=== PATIENT | female | born 1995 | race Caucasian/White ===

== ENCOUNTER 2018-01-28 00:23 | Emergency (ER) | payer BC, SELFPAY ==
[2018-01-28 00:53] LABS: #Basophils 0.1 thou/uL (0.0-0.2); #Eosinphils 0.1 thou/uL (0.0-0.7); #Lymphocytes 2.7 thou/uL (1.20-3.40); #Monocytes 0.8 thou/uL (0.11-0.59); #Neutrophils 6.5 thou/uL (1.40-6.50); %Basophils 1.2 % (0.0-1.0); %Eosinophils 0.7 % (0.0-10.0); %Lymphocytes 26.5 % (21.0-51.0); %Monocytes 7.6 % (0.0-10.0); %Neutrophils 64.1 % (42.0-75.0); Hemoglobin 14.1 g/dL (12.0-16.0); Mean Corpuscular HGB CONC 34.3 g/dL (32.0-36.0); Mean Corpuscular Hemoglobin 28.3 pg (27.0-31.0); Mean Corpuscular Volume 82.4 fl (81.0-99.0); Mean Platelet Volume 7.5 fL (7.4-10.4); Platelet Count 385 thou/uL (130-400); RBC Distribution Width 12.8 % (11.5-14.5); White Blood Cell (WBC) Count 10.1 thou/uL (4.8-10.8)
[2018-01-28] MEDS ORDERED: Ondansetron HCl/PF 4 MG/2 ML Vial ONE (01:10)
[2018-01-28 01:14] LABS: ALT (SGPT) 13 U/L (8-55); AST (SGOT) 12 U/L (5-34); Albumin 4.5 g/dL (3.5-5.0); Alkaline Phosphatase 165 U/L (40-150); Anion Gap 17 mmol/L (10-20); BUN (Urea Nitrogen) 11 mg/dL (7.0-18.7); Bilirubin, Total 1.3 mg/dL (0.2-1.2); Calc. Creatinine Clearance 0 mL/min (70-130); Calcium 9.9 mg/dL (7.8-10.44); Carbon Dioxide 17 mmol/L (22-29); Chloride 102 mmol/L (98-107); Estimated GFR-MDRD Greater than 90; Globulin 3.6 g/dL (2.4-3.5); Glucose 130 mg/dL (70-105); Potassium 4.4 mmol/L (3.5-5.1); Protein, Total 8.1 g/dL (6.0-8.3); Sodium 132 mmol/L (136-145)
[2018-01-28 01:35] LABS: Bilirubin Negative (Negative); Blood, Urine Negative (Negative); Clarity CLEAR (Clear); Glucose, Urine (Dipstick) Negative (Negative); Leukocyte Negative (Negative); Nitrite Negative (Negative); Protein, Urine (Dipstick) Negative (Neg-Trace); Specific Gravity, Urine 1.007 (1.002-1.036); Urobilinogen 0.2 mg/dL (0.2-1.0)
[2018-01-28] MEDS ORDERED: Ketorolac Tromethamine 30 MG/ML VIAL ONE (01:48)
== END 2018-01-28 03:14 | disposition home or self-care (01) ==
LOC: ERS 00:23
DX: E86.0 Dehydration (principal); E10.9 Type 1 diabetes mellitus without complications; K21.9 Gastro-esophageal reflux disease without esophagitis; E28.2 Polycystic ovarian syndrome; Z79.4 Long term (current) use of insulin; Z79.899 Other long term (current) drug therapy
CPT/HCPCS: 36416; 80053; 81003; 82010; 83735; 85025; 96361; 96374; 96375; J1885; J2405

== ENCOUNTER 2018-06-16 05:05 | Inpatient (IN) | payer BC, OTHER, SELFPAY ==
[2018-06-16 05:49] LABS: #Basophils 0.1 thou/uL (0.0-0.2); #Lymphocytes 2.7 thou/uL (1.20-3.40); #Monocytes 0.8 thou/uL (0.11-0.59); #Neutrophils 13.9 thou/uL (1.40-6.50); %Basophils 0.6 % (0.0-1.0); %Eosinophils 0.2 % (0.0-10.0); %Lymphocytes 15.4 % (21.0-51.0); %Monocytes 4.5 % (0.0-10.0); %Neutrophils 79.4 % (42.0-75.0); Hemoglobin 13.6 g/dL (12.0-16.0); Mean Corpuscular HGB CONC 33.7 g/dL (32.0-36.0); Mean Corpuscular Hemoglobin 28.7 pg (27.0-31.0); Mean Corpuscular Volume 85.2 fL (78.0-98.0); Platelet Count 390 thou/uL (130-400); RBC Distribution Width 13.3 % (11.5-14.5); Red Blood Cell (RBC) Count 4.75 mill/uL (4.20-5.40); White Blood Cell (WBC) Count 17.5 thou/uL (4.8-10.8)
[2018-06-16 05:50] LABS: CO2 Tension (PvCO2) 24.9 mmHg (41.0-51.0); Calcium, Ionized 1.12 mmol/L (1.12-1.32); Hemoglobin - Calc 16.2 g/dL (12.0-18.0); O2 Tension (PvO2) 27.6 mmHg (35.0-45.0); Potassium 6.6 mmol/L (3.4-4.7); T. Carbon Dioxide 7.7 mmol/L (1.0-85.0); pH (Venous) 7.056 (7.35-7.45); vO2 Saturation-calc 31.7 % (94-98)
[2018-06-16] MEDS ORDERED: Metoclopramide HCl 10 MG/2 ML VIAL ONE (05:52)
[2018-06-16 06:09] LABS: ALT (SGPT) 19 U/L (8-55); AST (SGOT) 24 U/L (5-34); Albumin 4.8 g/dL (3.5-5.0); Alkaline Phosphatase 171 U/L (40-150); BUN (Urea Nitrogen) 13 mg/dL (7.0-18.7); Bilirubin, Total 1.2 mg/dL (0.2-1.2); Calc. Creatinine Clearance 0 mL/min (70-130); Calcium 9.7 mg/dL (7.8-10.44); Carbon Dioxide Less than 8 mmol/L (22-29); Chloride 93 mmol/L (98-107); Estimated GFR-MDRD 44; Globulin 4.3 g/dL (2.4-3.5); Glucose 668 mg/dL (70-105); Lipase 7 U/L (8-78); Potassium 6.3 mmol/L (3.5-5.1); Protein, Total 9.1 g/dL (6.0-8.3); Sodium 125 mmol/L (136-145)
[2018-06-16] MEDS ORDERED: Insulin Regular 300 UNITS/3 ML VIAL ONE (06:40)
[2018-06-16] MEDS ORDERED: Insulin Regular 100 units/100 ml in NS IVPB SCH (06:45)
[2018-06-16 06:58] LABS: Bilirubin Negative (Negative); Blood, Urine Negative (Negative); Clarity CLEAR (Clear); Glucose, Urine (Dipstick) >=1000 mg/dL (Negative); Leukocyte Negative (Negative); Nitrite Negative (Negative); Protein, Urine (Dipstick) 30 mg/dL (Neg-Trace); Specific Gravity, Urine 1.025 (1.002-1.036); Urobilinogen 0.2 mg/dL (0.2-1.0)
[2018-06-16 07:01] LABS: Bacteria/HPF None Seen HPF (None Seen); Hyaline Casts/LPF 0-3 HYALINE CAST LPF (0-3 Hyaline); Pathc Cast-AUWi Flag 0.14 (0-2.49); RBC/HPF 0-3 HPF (0-3); Squamous Epithelial None Seen HPF (0-3); WBC/HPF None Seen HPF (0-3)
[2018-06-16 07:04] LABS: Pregnancy Test - Urine (BHCG) Negative (Negative)
[2018-06-16 07:05] LABS: Pregu Control Background? CLEAR/WHITE (CLR/WHITE); Pregu Control Bar Appear? YES (CONTROL BAR); Specific Gravity 1.025 (1.002-1.036)
[2018-06-16] MEDS ORDERED: Ondansetron HCl/PF 4 MG/2 ML Vial IVP PRN (09:22)
[2018-06-16] MEDS ORDERED: Dextrose 5 %-0.45 % NaCl 1,000 ML IV PRN (09:22)
[2018-06-16] MEDS ORDERED: Sodium Chloride 0.9% 1,000 ML IV PRN ×4 (09:22)
[2018-06-16] MEDS ORDERED: Senokot 8.6 MG TAB PO PRN (09:22)
[2018-06-16] MEDS ORDERED: Calcium Carbonate 500 MG ChewTAB PO PRN (09:22)
[2018-06-16] MEDS ORDERED: CCU Electrolyte Replacement 1 EACH IVPB ONE (09:22)
[2018-06-16] MEDS ORDERED: Bisacodyl 5 MG TAB PO PRN (09:22)
[2018-06-16] MEDS ORDERED: Mag-Al 1200 mg/1200 mg/30 ML UDCUP PO PRN (09:22)
[2018-06-16] MEDS ORDERED: NS 0.9% w/ 20 MEQ KCL 1,000 ML IV PRN ×2 (09:22)
[2018-06-16] MEDS ORDERED: Potassium Chloride 40 MEQ in Premix Bag 1 BAG IVPB PRN (09:41)
[2018-06-16] MEDS ORDERED: CCU ELECTROLYTE REPLACEMENT PROTOCOL FS PRN (09:41)
[2018-06-16] MEDS ORDERED: Potassium Phosphate 15 MMOL in Sodium Chloride 0.9% 250 ML 250 ML IV PRN (09:41)
[2018-06-16] MEDS ORDERED: Potassium Phosphate 9 MMOL in Sodium Chloride 0.9% 100 ML IVPB PRN (09:41)
[2018-06-16] MEDS ORDERED: Magnesium 2 GM/NS 0.9% 100 ML 2 GM in Premix Bag 1 BAG IVPB PRN (09:41)
[2018-06-16] MEDS ORDERED: Potassium Chloride 20 MEQ TAB PO PRN (09:41)
[2018-06-16] MEDS ORDERED: Potassium Phosphate 12 MMOL in Sodium Chloride 0.9% 250 ML 250 ML IV PRN (09:41)
[2018-06-16] MEDS ORDERED: Magnesium Oxide 400 MG TAB PO PRN ×2 (09:41)
[2018-06-16] MEDS ORDERED: Potassium Chloride 40 MEQ in Sodium Chloride 0.9% 250 ML 250 ML IVPB PRN (09:41)
[2018-06-16 09:50] LABS: pH, Arterial 7.19 (7.35-7.45)
[2018-06-16 09:51] LABS: Actual Bicarbonate (HCO3a) 4.4 mEq/L (22-28); Base Excess (BEa) -21.4 mEq/L (-2.0 to +3.0); CO2 Tension 11.8 mmHg (35.0-45.0); Hemoglobin (Hb) 12.6 g/dL (12.0-16.0); O2 Tension (PaO2) 127.5 mmHg (80.0-100.0)
[2018-06-16 09:52] LABS: Analyzer IN Cardio ER; Calcium, Ionized 1.1 mmol/L (1.12-1.30); Puncture Site RRA
[2018-06-16 10:34] LABS: BUN (Urea Nitrogen) 11 mg/dL (7.0-18.7); Calc. Creatinine Clearance 0 mL/min (70-130); Calcium 8.9 mg/dL (7.8-10.44); Chloride 102 mmol/L (98-107); Estimated GFR-MDRD 49; Glucose 341 mg/dL (70-105); Potassium 5.3 mmol/L (3.5-5.1); Sodium 130 mmol/L (136-145)
[2018-06-16 10:36] LABS: Carbon Dioxide Less than 8 mmol/L (22-29)
--- NOTE | 2018-06-16 11:42 | HP ---
DATE OF ADMISSION: 06/16/2018 PRIMARY CARE PHYSICIAN: Luis Mckeon. CHIEF COMPLAINT: Nausea and vomiting. HISTORY OF PRESENT ILLNESS: This is a 22-year-old female, type 1 insulin-dependent diabetic who pres ents with a chief complaint of nausea and vomiting. She states that her symptoms really started appr oximately Saturday morning accompanied by emesis of nonbloody bilious fluid. The patient states that she did go out drinking and had 7 drinks the evening before, which is atypical for her. Compounding her presentation, she also ran out of her Toujeo insulin for the last 2 days. As a result, the cristiane ent has been "going up" on her sliding scale NovoLog self administration. The patient denies any sic k contacts. Denies any known evidence of other infection. REVIEW OF SYSTEMS: As per HPI. Constitutional: No significant weight loss or gain. Denies any ove rt fevers or chills. HEENT: Currently has a migraine, which she typically has. Denies any atypical components from her baseline migraine with the one she is currently having. Denies any lightheadedn ess, dizziness or vision change. Cardiovascular: The patient endorses having had chest pain specifi nancy with emesis, resolved status post emesis. No other chest pain. She describes it as a substern al burning without radiation. Denies any palpitations. Respiratory: Denies any cough or congestion . Since Saturday, has been experiencing some shortness of breath, particularly worse with even very mild exertion such as ambulating to the bathroom or around in the room or even prolonged conversation . Gastrointestinal: Nausea and vomiting as per above. Endorses generalized abdominal pain. Denies any diarrhea. Last bowel movement was yesterday. Genitourinary: Denies any dysuria, changes in ur inary frequency, quality, quantity or odor. Musculoskeletal: Endorses baseline frequent cramping, w hich is not new for her. Otherwise, denies any new myalgias or arthralgia. Remainder of the review of systems is otherwise negative. PAST MEDICAL HISTORY: 1. Insulin-dependent diabetes per above. 2. Migraines. 3. PCOS. 4. Status post cholecystectomy. HOME MEDICATIONS: Please see the EMR for full details. The patient's current home regimen includes the following: Norgestimate/ethinyl estradiol 1 tab p.o. daily, Toujeo and insulin NovoLog sliding s ama. The patient does not take Phenergan, Lantus or metformin anymore, even though these are currently lis soco in the EMR. These will need to be updated. The patient denies any new over the counter medications, herbals, vitamins or supplements. ALLERGIES: Include AMOXICILLIN, POTASSIUM CLAVULANATE and AUGMENTIN with unknown reaction. FAMILY HISTORY: Significant for grandparents with type 2 diabetes. No other known family members wi th type 1 diabetes. No other known family members with autoimmune diseases. The patient is accompan ied by her mother today at bedside. SOCIAL HISTORY: The patient endorses alcohol use as described above, describes mostly a binge type p attern of ingestion along with 7 drinks on Saturday. Denies any tobacco or illicit drug use. Endorses full code status at this point in time with her mother at bedside as her medical decision maker if s he is unable to make her own medical decisions. PHYSICAL EXAMINATION: GENERAL: The patient is awake, alert, conversant, appears uncomfortable, but is not necessarily in a cute distress. She is lying in the hospital bed belly down because she states that it helps with her migraines. HEENT: Normocephalic, atraumatic. Moist mucous membranes. Equal ocular motions are intact. CARDIOVASCULAR: S1, S2. No murmurs, rubs or gallops. Pulses 2+ bilateral upper extremities. No pi tting pedal edema. RESPIRATORY: The patient is somewhat tachypneic, does have reasonable air movement without wheezes, rales or rhonchi. Does have some component of conversational dyspnea. Grossly clear to auscultation bilaterally. ABDOMEN: Positive bowel sounds, soft, large, obese, nontender to palpation. MUSCULOSKELETAL: Moving all 4 extremities equally. LABORATORY DATA AND IMAGING: WBC 17.5, hemoglobin 13.6, hematocrit 40.5, platelets 390,000. ABG jus t completed and include pH of 7.19, pCO2 11.8, pO2 of 127.5. Sodium 125, potassium 6.3, chloride of 93, BUN 13, creatinine 1.49, glucose 668, calcium 9.7, total bilirubin 1.2, AST 24, ALT 19, alkaline phosphatase 171, total protein 9.1, albumin 4.8, lipase of 7. UA is significant for 30 of protein, g reater than 1000 glucose, greater than 80 ketones. Beta hydroxybutyrate is 9. ASSESSMENT AND PLAN: A 22-year-old female who presented with chief complaint of nausea and vomiting. 1. Nausea and vomiting. Unclear if this is directly related to her significant alcohol ingestion or perhaps related to her presentation of diabetic ketoacidosis. We will continue to symptomatically m anage the nausea and vomiting itself. 2. Diabetic ketoacidosis. The patient is currently in diabetic ketoacidosis. She has been started on insulin drip. We will check serial fingerstick glucose and titrate the patient's insulin as per i nsulin protocol. Of note, the patient does have noted hyperkalemia. Likely precipitant of the patie nt's diabetic ketoacidosis is a combination of her lack of Toujeo in conjunction with her increased a lcohol use. We will also check BMP serially as well. The patient is definitely demonstrating a comp onent of acidosis. 3. Hyperkalemia. See discussion above. We will need to closely monitor. Check an EKG as well. 4. Leukocytosis, likely secondary to the combination of factors as listed above. No other clinical evidence for infection. Continue to closely monitor as well. 5. Recent alcohol use. The patient is demonstrating a binge pattern of alcohol use. Counseled liset villafuerteing moderation in alcohol consumption. 6. Diet: N.p.o. 7. Activity: Out of bed as tolerated. 8. Deep venous thrombosis prophylaxis with heparin. 9. Acute kidney injury without any known renal disease. Continue with hydration as noted above and closely monitor. Admit the patient to the ICU.
[2018-06-16 14:41] LABS: BUN (Urea Nitrogen) 6 mg/dL (7.0-18.7); Calc. Creatinine Clearance 0 mL/min (70-130); Calcium 8.1 mg/dL (7.8-10.44); Chloride 107 mmol/L (98-107); Estimated GFR-MDRD 61; Glucose 231 mg/dL (70-105); Potassium 4.7 mmol/L (3.5-5.1); Sodium 129 mmol/L (136-145)
[2018-06-16 14:47] LABS: Carbon Dioxide Less than 8 mmol/L (22-29)
[2018-06-16] MEDS: Heparin 5,000 UNITS/ML VIAL SC SCH ×2 (17:55→21:03)
[2018-06-16 18:02] LABS: Anion Gap 14 mmol/L (10-20); BUN (Urea Nitrogen) 5 mg/dL (7.0-18.7); Calc. Creatinine Clearance 72 mL/min (70-130); Calcium 8.1 mg/dL (7.8-10.44); Carbon Dioxide 13 mmol/L (22-29); Chloride 108 mmol/L (98-107); Estimated GFR-MDRD 73; Glucose 209 mg/dL (70-105); Potassium 3.8 mmol/L (3.5-5.1); Sodium 131 mmol/L (136-145)
[2018-06-16] MEDS: D5 1/2 NS w/20 mEq KCL 1,000 ML IV PRN ×2 (19:22→23:53)
[2018-06-16] MEDS: Docusate 100 MG CAP PO SCH (21:04)
[2018-06-16] MEDS: Famotidine/PF 20 mg/2ml Vial SLOW IVP SCH (21:05)
[2018-06-17] MEDS: D5 1/2 NS w/20 mEq KCL 1,000 ML IV PRN (03:54)
[2018-06-17 04:31] LABS: #Lymphocytes 2.9 thou/uL (1.20-3.40); #Monocytes 1.1 thou/uL (0.11-0.59); #Neutrophils 6.9 thou/uL (1.40-6.50); %Basophils 0.1 % (0.0-1.0); %Eosinophils 0.2 % (0.0-10.0); %Lymphocytes 26.9 % (21.0-51.0); %Monocytes 9.8 % (0.0-10.0); Hemoglobin 11.2 g/dL (12.0-16.0); Mean Corpuscular HGB CONC 34.7 g/dL (32.0-36.0); Mean Corpuscular Hemoglobin 28.4 pg (27.0-31.0); Mean Platelet Volume 6.9 fL (7.4-10.4); Platelet Count 296 thou/uL (130-400); RBC Distribution Width 13.2 % (11.5-14.5); Red Blood Cell (RBC) Count 3.93 mill/uL (4.20-5.40); White Blood Cell (WBC) Count 10.9 thou/uL (4.8-10.8)
[2018-06-17 04:42] LABS: Anion Gap 14 mmol/L (10-20); BUN (Urea Nitrogen) Less than 4 mg/dL (7.0-18.7); Calc. Creatinine Clearance 101 mL/min (70-130); Calcium 8.2 mg/dL (7.8-10.44); Carbon Dioxide 15 mmol/L (22-29); Chloride 111 mmol/L (98-107); Estimated GFR-MDRD Greater than 90; Glucose 173 mg/dL (70-105); Potassium 3.5 mmol/L (3.5-5.1); Sodium 136 mmol/L (136-145)
[2018-06-17] MEDS ORDERED: INSULIN GLARGINE SC SCH (09:00)
[2018-06-17] MEDS ORDERED: HumaLOG 300 UNITS/3 ML VIAL SC PRN (09:56)
[2018-06-17] MEDS ORDERED: Dextrose 5% in Water 1,000 ML IV PRN (09:56)
[2018-06-17] MEDS ORDERED: Dextrose 50% Abboject 50 ML SYRINGE IVP PRN (09:56)
[2018-06-17] MEDS ORDERED: Insulin Glargine 30 UNITS in Pre-Filled Syringe 1 EACH SC SCH (10:30)
[2018-06-17] MEDS: Heparin 5,000 UNITS/ML VIAL SC SCH ×3 (11:34→21:19)
[2018-06-17] MEDS: Famotidine/PF 20 mg/2ml Vial SLOW IVP SCH ×2 (11:34→21:33)
[2018-06-17] MEDS: Docusate 100 MG CAP PO SCH ×2 (11:34→21:33)
[2018-06-17 11:50] VITALS: BMI 38.0
[2018-06-17] MEDS: HumaLOG 300 UNITS/3 ML VIAL SC PRN (16:47)
--- NOTE | 2018-06-17 16:49 | PDOC.PN ---
- Subjective Encounter Start Date: 06/17/18 Encounter Start Time: 10:00 Pt seen for followup re: DKA. Denies chest pain, shortness of breath, fevers or chills. - Objective Resuscitation Status: Resuscitation Status FULL:Full Resuscitation MAR Reviewed: Yes Vital Signs & Weight: Vital Signs (12 hours) Temp Pulse Resp BP Pulse Ox 06/17/18 15:51 97.5 F L 101 H 18 112/68 98 06/17/18 11:36 97.9 F 90 17 122/71 98 06/17/18 08:18 97.4 F L 98 14 99 06/17/18 07:38 97.4 F L 98 14 99 Weight Admit Weight 110 lb 1.6 oz Weight 242 lb 11.8 oz I&O: 06/16/18 06/17/18 06/18/18 06:59 06:59 06:59 Intake Total 4366 1450 Output Total 3900 650 Balance 466 800 Result Diagrams: 06/17/18 04:05 06/17/18 04:05 Additional Labs: Accuchecks 06/17/18 06/17/18 06/17/18 12:01 10:16 09:08 POC Glucose 169 H 144 H 147 H 06/17/18 06/17/18 06/17/18 08:25 07:03 05:58 POC Glucose 157 H 164 H 174 H 06/17/18 06/17/18 06/17/18 04:59 03:55 02:53 POC Glucose 160 H 184 H 173 H 06/17/18 06/17/18 06/16/18 02:06 00:52 23:54 POC Glucose 182 H 190 H 220 H 06/16/18 06/16/18 06/16/18 23:04 22:10 21:03 POC Glucose 200 H 172 H 163 H 06/16/18 06/16/18 06/16/18 20:03 18:45 17:28 POC Glucose 177 H 218 H 203 H 06/16/18 06/16/18 16:30 15:35 POC Glucose 213 H 215 H EKG Reviewed by me: Yes (Tele: NSR) Phys Exam - Physical Examination Obesity HEENT: moist MMs, sclera anicteric, oral pharynx no lesions, 2+ tonsils Neck: no nodes, no JVD, supple, full ROM Respiratory: no wheezing, no rales, no rhonchi, clear to auscultation bilateral Cardiovascular: RRR, no rub S1, S2 Gastrointestinal: soft, non-tender, no distention, positive bowel sounds Neurological: moves all 4 limbs Psychiatric: normal affect, A&O x 3 Dx/Plan (1) DKA (diabetic ketoacidoses) Code(s): E13.10 - OTH DIABETES MELLITUS WITH KETOACIDOSIS WITHOUT COMA Status : Acute Comment: Improving, transition to sc insulin. Pt reports that plan was to switch her to levemir since Toujeo is expensive. (2) Nausea and vomiting Code(s): R11.2 - NAUSEA WITH VOMITING, UNSPECIFIED Status: Acute Comment: Improved, start diet (3) Migraines Code(s): G43.909 - MIGRAINE, UNSP, NOT INTRACTABLE, WITHOUT STATUS MIGRAINOSUS Status: Chronic Comment: stable (4) PCOS (polycystic ovarian syndrome) Code(s): E28.2 - POLYCYSTIC OVARIAN SYNDROME Status: Chronic Comment: stable. - Plan * . Review of Systems - Review of Systems Constitutional: negative: fever, chills, sweats, weakness, malaise Respiratory: negative: Cough, Shortness of Breath, SOB with Excertion, Pleuritic Pain, Wheezing Cardiovascular: negative: chest pain, palpitations, orthopnea, paroxysmal nocturnal dyspnea, edema, light headedness Gastrointestinal: negative: Nausea, Vomiting, Abdominal Pain, Diarrhea, Constipation, Melena, Hematochezia Genitourinary: negative: Dysuria, Frequency, Incontinence, Hematuria, Retention Skin: negative: Rash, Lesions, Manoj, Bruising - Medications/Allergies Allergies/Adverse Reactions: Allergies Allergy/AdvReac Type Severity Reaction Status Date / Time amoxicillin trihydrate Allergy Unknown Verified 06/16/18 16:37 [From Augmentin] potassium clavulanate Allergy Unknown Verified 06/16/18 16:37 [From Augmentin] macadamia nut oil Allergy Verified 06/16/18 16:40 morphine Allergy Verified 06/16/18 16:40 Medications: Current Medications Al Hydroxide/Mg Hydroxide (Maalox) 30 ml PO Q6H PRN PRN Reason: Heartburn or Indigestion Bisacodyl (Dulcolax) 10 mg PO DAILYPRN PRN PRN Reason: Constipation Calcium Carbonate (Tums) 1,000 mg PO Q4H PRN PRN Reason: Heartburn or Indigestion Dextrose/Water (Dextrose 50%) 25 gm IVP PRN PRN PRN Reason: HYPOGLYCEMIA PROTOCOL Docusate Sodium (Colace) 100 mg PO BID [facility] Last Admin: 06/17/18 11:34 Dose: Not Given Famotidine (Pepcid) 20 mg SLOW IVP Q12HR [facility] Last Admin: 06/17/18 11:34 Dose: Not Given Glucagon (Glucagon) 1 mg IM PRN PRN PRN Reason: HYPOGLYCEMIA PROTOCOL Heparin Sodium (Porcine) (Heparin) 5,000 units SC TID [facility] Last Admin: 06/17/18 15:22 Dose: Not Given Dextrose/Sodium Chloride (D5 1/2 Ns) 1,000 mls @ 250 mls/hr IV .Q4H PRN; Protocol PRN Reason: Step 4 of DKA Protocol Potassium Chloride/Dextrose/Sod Cl (D5 1/2 Ns W/20 Meq Kcl) 1,000 mls @ 250 mls /hr IV .Q4H PRN; Protocol PRN Reason: Step 4 of DKA Protocol Last Admin: 06/17/18 03:54 Dose: 1,000 mls Sodium Chloride (Normal Saline 0.9%) 1,000 mls @ 500 mls/hr IV .Q2H PRN; Protocol PRN Reason: Step 1 of DKA Protocol Sodium Chloride (Normal Saline 0.9%) 1,000 mls @ 1,000 mls/hr IV .Q1H PRN; Protocol PRN Reason: Step 1 of DKA Protocol Sodium Chloride (Normal Saline 0.9%) 1,000 mls @ 250 mls/hr IV .Q4H PRN; Protocol PRN Reason: SEE STEP 3 OF DKA PROTOCOL Sodium Chloride (Normal Saline 0.9%) 1,000 mls @ 500 mls/hr IV .Q2H PRN; Protocol PRN Reason: Step 2 of DKA Protocol Potassium Chloride/Sodium Chloride (Ns 0.9% W/ 20 Meq Kcl) 1,000 mls @ 500 mls/ hr IV .Q2H PRN; Protocol PRN Reason: Step 2 of DKA Protocol Potassium Chloride/Sodium Chloride (Ns 0.9% W/ 20 Meq Kcl) 1,000 mls @ 250 mls/ hr IV .Q4H PRN; Protocol PRN Reason: SEE STEP 3 OF DKA PROTOCOL Potassium Chloride 40 meq/ (Sodium Chloride) 270 mls @ 135 mls/hr IVPB ASDIR PRN PRN Reason: FOR SERUM K+ 2.5 - 3.5 Potassium Chloride 40 meq/ (Device) 100 mls @ 50 mls/hr IVPB ASDIR PRN PRN Reason: FOR SERUM K+ 2.5 - 3.5 Magnesium Sulfate 1 gm/ Sodium (Chloride) 102 mls @ 102 mls/hr IV PRN PRN PRN Reason: MAG LEVEL 1.4 - 2.0 Magnesium Sulfate 2 gm/ Device 100 mls @ 100 mls/hr IVPB ASDIR PRN PRN Reason: MAGNESIUM < 1.4 Potassium Phosphate 9 mmol/ (Sodium Chloride) 103 mls @ 25.75 mls/hr IVPB ASDIR PRN PRN Reason: Phosphate 1.0-1.8 Potassium Phosphate 12 mmol/ (Sodium Chloride) 254 mls @ 63.5 mls/hr IV ASDIR PRN PRN Reason: Serum phosphate 0.5-0.9 Potassium Phosphate 15 mmol/ (Sodium Chloride) 255 mls @ 63.75 mls/hr IV ASDIR PRN PRN Reason: Serum Phos < 0.5 Dextrose/Water (D5w) 1,000 mls @ 0 mls/hr IV INF PRN; As Directed PRN Reason: HYPOGLYCEMIA PROTOCOL Insulin Glargine 30 units/ (Miscellaneous Medication) 0.3 mls @ 0 mls/hr SC BID POPEYE Insulin Human Lispro (Humalog) 0 units SC .MODERATE SLIDING SC PRN; Protocol PRN Reason: MODERATE SLIDING SCALE Insulin Human Lispro (Humalog) 0 units SC .BEDTIME SLIDING SC PRN; Protocol PRN Reason: BEDTIME SLIDING SCALE Magnesium Oxide (Magnesium Oxide) 400 mg PO BIDPRN PRN PRN Reason: FOR SERUM MAG 1.4 - 2.0 Magnesium Oxide (Magnesium Oxide) 800 mg PO PRN PRN PRN Reason: FOR SERUM MAG < 1.4 Miscellaneous Medication (Phos-Nak) 1 pkt PO TIDPRN PRN PRN Reason: FOR PHOS LEVEL 1.0 - 1.8 Miscellaneous Medication (Phos-Nak) 2 pkt PO TIDPRN PRN PRN Reason: FOR PHOS LEVEL 0.5 - 1.0 Ccu Electrolyte (Replacement Protocol) 0 each FS PRN PRN PRN Reason: FOR ELECTROLYTE REPLACEMENT Ondansetron HCl (Zofran) 4 mg IVP Q6H PRN PRN Reason: Nausea/Vomiting Potassium Chloride (K-Dur) 40 meq PO ASDIR PRN PRN Reason: FOR SERUM K+ 2.5 - 3.5 Potassium Chloride (Klor-Con) 40 meq PER TUBE ASDIR PRN PRN Reason: FOR SERUM K+ 2.5-3.5 Senna (Senokot) 2 tab PO HSPRN PRN PRN Reason: Constipation
[2018-06-17] MEDS: Insulin Glargine 30 UNITS in Pre-Filled Syringe 1 EACH SC SCH (21:20)
[2018-06-18 03:51] VITALS: TEMP 98.7
[2018-06-18 06:26] LABS: Anion Gap 12 mmol/L (10-20); BUN (Urea Nitrogen) Less than 4 mg/dL (7.0-18.7); Calc. Creatinine Clearance 251 mL/min (70-130); Calcium 8.5 mg/dL (7.8-10.44); Carbon Dioxide 21 mmol/L (22-29); Chloride 107 mmol/L (98-107); Estimated GFR-MDRD Greater than 90; Glucose 146 mg/dL (70-105); Potassium 3.4 mmol/L (3.5-5.1); Sodium 137 mmol/L (136-145)
[2018-06-18 06:44] LABS: Eosinophils 4 % (0-10); Lymphocytes 56 % (21-51); MDiff Complete? YES; Mean Corpuscular HGB CONC 35.4 g/dL (32.0-36.0); Mean Corpuscular Hemoglobin 28.9 pg (27.0-31.0); Mean Corpuscular Volume 81.5 fL (78.0-98.0); Mean Platelet Volume 6.9 fL (7.4-10.4); Monocytes 6 % (0-10); Neutrophil 34 % (42-75); PLT Morphology Comment Appears Adequate; Platelet Count 272 thou/uL (130-400); RBC Distribution Width 13.2 % (11.5-14.5); RBC Morphology Normal; Red Blood Cell (RBC) Count 3.81 mill/uL (4.20-5.40); White Blood Cell (WBC) Count 5.4 thou/uL (4.8-10.8)
[2018-06-18] MEDS ORDERED: Potassium Chloride 20 MEQ TAB PO SCH (07:45)
[2018-06-18] MEDS: Docusate 100 MG CAP PO SCH (08:10)
[2018-06-18] MEDS: Heparin 5,000 UNITS/ML VIAL SC SCH (08:10)
[2018-06-18] MEDS: Insulin Glargine 30 UNITS in Pre-Filled Syringe 1 EACH SC SCH (08:15)
[2018-06-18] MEDS: Famotidine/PF 20 mg/2ml Vial SLOW IVP SCH (08:16)
[2018-06-18 11:11] VITALS: BP 108/69
[2018-06-18] MEDS: HumaLOG 300 UNITS/3 ML VIAL SC PRN (11:11)
--- NOTE | 2018-06-18 13:40 | DIS ---
DATE OF ADMISSION: 06/16/2018 DATE OF DISCHARGE: 06/18/2018 PRIMARY CARE PROVIDER: Dr. Vazquez at [facility]. DISCHARGE DIAGNOSES: 1. Diabetic ketoacidosis. 2. Hypokalemia. 3. Hyponatremia. 4. Acute renal insufficiency. CONDITION OF PATIENT ON THE DAY OF DISCHARGE: Stable. I assessed Ms. Ramos on the day of discharge. She denies any chest pain or shortness of breath. She denies any fevers or chills. She denies any nausea or vomiting. Vital signs are stable. S1 and S2 are heard, regular. Lungs are clear to auscu ltation bilaterally. HOSPITAL COURSE: Ms. Ramos is a pleasant 22-year-old lady who was admitted to [facility] on 06/16/2018 for diabetic ketoacidosis. Please refer Seferino's history and physical note elian wan 06/16/2018 for further details. She was admitted to the IMCU unit and treated per DKA protocol. She improved clinically. Her insulin was changed to Levemir and she is being discharged home in a s table condition. She is advised to follow up with her primary care provider and with her endocrinolo gist as outpatient. DISCHARGE MEDICATIONS: Levemir 30 units twice daily, NovoLog per moderate sliding scale, Microgestin 1 tablet daily. Many thanks for allowing me to participate in your patient's care. Please feel free to contact me wi th any questions or concerns. On the day of discharge, she has sodium 137, potassium 3.4, which is being replaced, anion gap 12 and bicarbonate 21. White count is 5400, hemoglobin 11 and platelet count 272,000. DISCHARGE DESTINATION: Home. TOTAL AMOUNT OF TIME SPENT COORDINATING THIS DISCHARGE: 31 minutes.
== END 2018-06-18 13:03 | disposition home or self-care (01) | DRG 638 ==
LOC: ERS 05:05 → ERHOLD 09:05 → IMCU/EMU 15:50 → ONC 06-17 22:31
PROVIDERS: ADMIT Internal Medicine; ATTEND Internal Medicine
DX: E10.10 Type 1 diabetes mellitus with ketoacidosis without coma (principal); N17.9 Acute kidney failure, unspecified; E87.1 Hypo-osmolality and hyponatremia; Z79.4 Long term (current) use of insulin; G43.909 Migraine, unspecified, not intractable, without status migrainosus; Z88.1 Allergy status to other antibiotic agents; Z88.0 Allergy status to penicillin; Z88.8 Allergy status to other drugs, medicaments and biological substances; E87.5 Hyperkalemia; D72.829 Elevated white blood cell count, unspecified; E66.9 Obesity, unspecified; E28.2 Polycystic ovarian syndrome; Z68.38 Body mass index [BMI] 38.0-38.9, adult
CPT/HCPCS: 36415; 36416; 80048; 80053; 81003; 81015; 81025; 82010; 82330; 82803; 82805; 83690; 85025; 96365; 96366; 96367; J1644; J1815; J2765; J7050; S0028